=== PATIENT | male | born 1965 | race Caucasian/White ===

== ENCOUNTER 2020-08-25 16:26 | Emergency (ER) | payer OTHER | END 2020-08-25 19:02 | disposition home or self-care (01) | LOC: ERS 16:26 | DX: S09.90XA Unspecified injury of head, initial encounter (principal); W22.8XXA Striking against or struck by other objects, initial encounter; Y93.01 Activity, walking, marching and hiking; Y92.89 Other specified places as the place of occurrence of the external cause | CPT/HCPCS: 99283 ==

== ENCOUNTER 2022-10-15 08:24 | Outpatient (CLI) | payer OTHER | END 2022-10-15 08:25 | disposition home or self-care (01) | LOC: BICMRI 08:24 | PROVIDERS: ATTEND Family Medicine | DX: S39.012D Strain of muscle, fascia and tendon of lower back, subsequent encounter (principal) | CPT/HCPCS: 72148 ==